=== PATIENT | male | born 1935 | race Caucasian/White ===

== ENCOUNTER 2018-12-07 15:40 | Emergency (ER) | payer OTHER, SELFPAY ==
[2018-12-07 15:40] VITALS: PULSE 70; RESP 19; TEMP 36.9; O2SAT 96
[2018-12-07 15:50] VITALS: BP 148/84; PULSE 70; RESP 19; TEMP 36.9; O2SAT 96
--- NOTE | 2018-12-07 15:51 | DI.RAD.S_ITS ---
PROCEDURE: XR KNEE LT 3V INDICATIONS: fall/injury TECHNIQUE: 3 views of the knee were acquired. COMPARISON: None. FINDINGS: Bones: No fractures or dislocations. No suspicious bony lesions. 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 Mild chondrocalcinosis. Soft tissues: Prepatellar soft tissue swelling. Small to moderate joint effusion. No suspicious soft tissue calcifications. IMPRESSION: 1. No fractures. 2. Tricompartmental degenerative joint disease. 3. Prepatellar soft tissue swelling and knee joint effusion. Dictated by: Eduin Chavez M.D. on 12/07/2018 at 16:00 Approved by: Eduin Chavez M.D. on 12/07/2018 at 16:02
[2018-12-07 17:40] VITALS: BP 155/83; PULSE 68; RESP 18; O2SAT 98
--- NOTE | 2018-12-07 17:46 | ED_ITS ---
HPI - Extremity Injury (Lower) <Danis KamYUNG nelson - Last Filed: 12/08/18 00:05> General Chief Complaint: Extremity Injury, Lower Stated Complaint: L Knee tripped and fell constant pain getting wors Time Seen by Provider: 12/07/18 17:36 Source: patient Mode of arrival: ambulatory Limitations: no limitations History of Present Illness HPI Narrative: This is a 83-year-old male, nonsmoker, complaining of left knee pain and swelling. Patient reports he has tripped on a clump of grass during work 3 nights ago at the [employer]. 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 Patient reports the pain is in lateral and posterior knee. Patient was resting the affected knee over the weekend but after walking around today at work which aggravated pain and he had to limp. Patient also complain of mild left elbow pain but reports he is able to flex and extend his affected elbow without difficulty. Also noticed small abrasion to left inner wrist. Patient denies on blood thinner. He denies injuring his head or neck. Patient reports had taken Tylenol during lunchtime. Related Data Home Medications Medication Instructions Recorded Confirmed acetaminophen 650 mg PO #0 04/16/16 lisinopril 20 mg PO QDAY #0 04/16/16 multivitamin [Multiple Vitamins] 1 tab PO QDAY #0 04/16/16 vitamin B complex [B 1 tab PO QDAY #0 04/16/16 Complex-Vitamin B12] loratadine [Claritin Liqui-Gel] #0 05/13/16 Allergies Allergy/AdvReac Type Severity Reaction Status Date / Time No Known Allergies Allergy Uncoded 07/09/17 12:41 Review of Systems <Danis Dulce Maria SHOP LEAD - Last Filed: 12/08/18 00:05> Review of Systems Narrative: General: Denies fever, chills, fatigue, malaise, sweats. HEENT: Denies sinus pain, ear pain, sore throat, difficulty swallowing, dizziness. Respiratory: Denies dyspnea, cough, wheezing, hemoptysis, sputum. Cardiovascular: Denies chest pain, palpitations, orthopnea, edema. Gastrointestinal: Denies nausea, vomiting, abdominal pain, diarrhea, constipation, melena. : Denies dysuria, frequency, incontinence, hematuria, urinary retention. Musculoskeletal: See HPI Skin: See HPI Neurologic: Denies weakness, headache, numbness, change in speech, confusion, seizures, incoordination. Psychiatric: No concerning psychosocial issues. 12-point review of systems is negative except for those stated above. PFSH <YUNG Johnson - Last Filed: 12/08/18 00:05> Social History Smoking Status: Never smoker Social History Smoking Status: Never smoker Exam <YUNG Johnson - Last Filed: 12/08/18 00:05> Narrative Exam Narrative: GEN: Alert, oriented x 3, well appearing and nourished, and in no acute distress. Head: Normal cephalic, atraumatic. No scalp or temporal tenderness, palpable mass or rash. EYES: Pupils are equal, round, and reactive to light and accommodation. Extraocular muscles are intact bilaterally. There is no subconjunctival hemorrhage, exudate and sclera non-icteric. ENT: Bilateral auditory canals and tympanic membranes clear. Hearing grossly intact. Nose without bleeding, purulent discharge or deviation. Facial sinuses nontender to palpate. Mucous membrane moist, no mucosal lesion. Throat without erythema, tonsillar hypertrophy or exudate. Uvula in midline, airway patent. Neck: Trachea in midline. No JVD, non-tender without lymphadenopathy. No masses or thyroid megaly. Supple, non-tender to palpate in mid cervical and no meningeal signs. CARDIAC: Normal regular rate and rhythm without murmurs, gallops, or rubs. No chest wall tenderness. No peripheral edema, cyanosis or pallor. Capillary refill is less than 2 seconds. RESPIRATORY: Lungs are cleat to auscultate bilaterally. No cough, wheezes, rales, or rhonchi. No stridor, respiratory distress, increase work of breathing, or accessary muscle used. ABD: Abdomen soft, nontender and non-distended. No guarding or rebound tenderness to palpate. Bowel sounds are normal in all 4 quadrants. There is no palpable masses or organomegaly. SKIN: Small abrasion to left inner wrist, without redness, swelling, warmth. Warm, dry, normal color for patient. No erythema, lesions or rash over father visible areas. BACK: Nontender without deformity or crepitance. No flank tenderness. NEUROLOGICAL: Alert and oriented to place, time and person. Sensation and motor function intact bilaterally. No facial droops, dysphasia. PSYCHIATRIC: Good judgement and reason, without hallucinations, abnormal affect or abnormal behaviors during the examination. Patient is not suicidal. Initial Vital Signs Initial Vital Signs: Vital Signs Temperature 98.4 F 12/07/18 15:40 Pulse Rate 70 12/07/18 15:40 Respiratory Rate 12/07/18 15:40 Pulse Oximetry 96 12/07/18 15:40 Extrem Left upper extremity: elbow/forearm Details: normal to inspection, tenderness and normal ROM; no swelling, no unusual warmth, no abrasions and no deformity Left lower extremity: knee Details: tenderness Location: of the patella (Posterior knee), of the medial joint line and of the lateral joint line, swelling (Medial aspect) and abnormal ROM Details: pain with active ROM and pain with passive ROM; no crepitus <Micaela Fabian DO - Last Filed: 12/08/18 08:15> Initial Vital Signs Initial Vital Signs: Vital Signs Temperature 98.4 F 12/07/18 15:40 Pulse Rate 70 12/07/18 15:40 Respiratory Rate 12/07/18 15:40 Pulse Oximetry 96 12/07/18 15:40 Procedures <YUNG Johnson - Last Filed: 12/08/18 00:05> Orthopedic Splinting/Casting Injury #1: Side: left Lower Extremity Injury Location: knee Lower Extremity Immobilizer: Reece wrap Post splinting neuro exam: intact Post splinting vascular exam: intact Placed by: Nursing Course <YUNG Johnson - Last Filed: 12/08/18 00:05> Orders Ordered: Discontinued Medications Ibuprofen (Advil) 400 mg PO NOW ONE Stop: 12/07/18 17:49 Last Admin: 12/07/18 18:12 Dose: 400 mg Documented by: DENA Vital Signs Vital signs: Vital Signs - 8 hr 12/07/18 15:40 12/07/18 15:50 12/07/18 17:40 Temperature 98.4 F 98.4 F Pulse Rate 70 70 68 Respiratory Rate 18 Blood Pressure [Left Arm] 148/84 H 155/83 H Pulse Oximetry 96 96 98 <Micaela Fabian DO - Last Filed: 12/08/18 08:15> Orders Ordered: Discontinued Medications Ibuprofen (Advil) 400 mg PO NOW ONE Stop: 12/07/18 17:49 Last Admin: 12/07/18 18:12 Dose: 400 mg Documented by: DENA Vital Signs Vital signs: Vital Signs - 8 hr 12/07/18 15:40 12/07/18 15:50 12/07/18 17:40 Temperature 98.4 F 98.4 F Pulse Rate 70 70 68 Respiratory Rate 18 Blood Pressure [Left Arm] 148/84 H 155/83 H Pulse Oximetry 96 96 98 MDM - Extremity Injury (Lower) <YUNG Johnson - Last Filed: 12/08/18 00:05> Differential Diagnosis Differential diagnosis: Likely acute internal derangement of knee, ankle fracture and other (L elbow contusion, L volar aspect abrasion) Medical Records Attestation: I reviewed the patient's medical records. Imaging Data XR-Knee LT: Radiologist's impression: [place] [address] XRay Report Signed Patient: iMtch Alvarez EMR#: [id number] : [id number] Age/Sex: 83 / MDate of Service: 12/07/18 Loc: ED Accession Number: [id number] Procedure: XR knee LT 3V Ordering Provider: Micaela Fabian D.O. PROCEDURE: XR KNEE LT 3V INDICATIONS: fall/injury TECHNIQUE: 3 views of the knee were acquired. COMPARISON: None. FINDINGS: Bones: No fractures or dislocations. No suspicious bony lesions. 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 Mild chondrocalcinosis. Soft tissues: Prepatellar soft tissue swelling. Small to moderate joint effusion. No suspicious soft tissue calcifications. IMPRESSION: 1. No fractures. 2. Tricompartmental degenerative joint disease. 3. Prepatellar soft tissue swelling and knee joint effusion MDM Narrative Medical decision making narrative: The patient had fell after tripped on a clump of grass during work ago and injured the left knee, left elbow, left inner wrist. Patient states knee pain has been increasing with ambulation today and having limping gait. Patient has also a small abrasion to left inner wrist. Patient injured left elbow but the pain is not significant and is able to flex and extend affected elbow without difficulty. Neurovascular exam for intact distal to left upper and lower injury sites. There was soft swollen spot in medial to left knee. Patient has limited active and passive range of motion on left knee due to pain. X-ray test was done on left knee any shows prepatellar soft tissue swelling and knee joint effusion without fracture. Reece wrap was applied on left knee for comfort and support. Patient declines crutches or cane at this time. Patient advised to use RICE therapy and advised to use [id number] Tylenol Motrin as needed for discomfort. Patient provided with work off note till Friday. L& I paper documentation has been completed. Patient advised to follow up with [facility] orthopedist and phone number to [facility] to arrange primary care physician. Patient agrees with treatment plan and no further questions were expressed at this time. Return precautions were discussed with the patient Discharge Plan Departure Patient Disposition: Home Clinical Impression: Abrasion Contusion of knee, left Qualifiers: Encounter type: initial encounter Qualified Code(s): S80.02XA - Contusion of left knee, initial encounter Effusion of knee Qualifiers: Laterality: left Qualified Code(s): M25.462 - Effusion, left knee Contusion of elbow Qualifiers: Encounter type: initial encounter Laterality: left Qualified Code(s): S50.02XA - Contusion of left elbow, initial encounter Discharge Date/Time: 12/07/18 18:27 Instructions: DI for Knee Sprain, DI for Knee Effusion Activity Restrictions/Additional Instructions: You have been diagnosed with [knee sprain and contusion. According to x-ray test today, there is prepatellar soft tissue swelling and knee joint effusion. Your knee has been wrapped with Reece wrap for support.]. What to do: *Take your medications as directed. Please take [id number] Tylenol and or Motrin as needed for pain and swelling. You can take extra-strength 2 tabs of Tylenol 4 times a day, ibuprofen 600 mg 3 times a day with food as needed *Follow up with your primary care provider/orthopedist in 2-3 days, call for an appointment. Let them know you were seen in the ED and that we asked you to be seen in follow up. *Return to ED if you have any new, worsening, or concerning symptoms, such as [increasing pain, swelling, redness, warmth, fever, chest pain, breathing difficulty, or any acute concerns]. Prescriptions: No Action multivitamin [Multiple Vitamins] 1 EACH tablet 1 tab PO QDAY Qty: 0 RF: 0 vitamin B complex [B Complex-Vitamin B12] 1 EACH tablet 1 tab PO QDAY Qty: 0 RF: 0 acetaminophen 325 MG tablet 650 mg PO Qty: 0 RF: 0 lisinopril 20 MG tablet 20 mg PO QDAY Qty: 0 RF: 0 loratadine [Claritin Liqui-Gel] 10 MG capsule Qty: 0 RF: 0 Referrals: [facility] [Outside] [facility] [Outside] Stand Alone Forms: Work Release Note
[2018-12-07] MEDS: IBUPROFEN 400 MG TABLET PO (18:12)
== END 2018-12-07 18:27 | disposition home or self-care (01) ==
PROVIDERS: Emergency Provider Nurse Practitioner Family
DX: S60.812A Abrasion of left wrist, initial encounter (principal); S80.02XA Contusion of left knee, initial encounter; M25.462 Effusion, left knee; S50.02XA Contusion of left elbow, initial encounter; Y99.0 Civilian activity done for income or pay
CPT/HCPCS: 73562; 99283